=== PATIENT | female | born 1965 | race Caucasian/White ===

== ENCOUNTER 2022-01-31 06:00 | Outpatient (RCR) | payer MEDICARE, SELFPAY | END 2022-02-08 23:59 | disposition home or self-care (01) | LOC: SPT 06:00 | PROVIDERS: PCP Family Medicine; Visit Provider Otolaryngology | DX: R42 Dizziness and giddiness (principal); H81.11 Benign paroxysmal vertigo, right ear | CPT/HCPCS: 95992; 97162 ==

== ENCOUNTER 2023-03-11 14:42 | Outpatient (CLI) | payer MEDICARE, SELFPAY ==
--- NOTE | 2023-03-11 14:52 | MM_ITS ---
WS: [id number] BILATERAL 3D TOMOSYNTHESIS DIGITAL DIAGNOSTIC MAMMOGRAPHY WITH CAD CLINICAL INFORMATION: CYST OF LEFT BREAST HISTORY: Bump on skin near nipple COMPARISON: 2016 TECHNIQUE: Bilateral CC, MLO, and ML views. FINDINGS: Scattered fibroglandular densities bilaterally. A few incidental punctate and lucent centered calcifi cations. Palpable marker LEFT breast near the nipple. No definite underlying mammographic abnormaliti es. Ultrasound of this area is pending. RIGHT breast is unremarkable. ULTRASOUND BREAST LEFT TECHNIQUE: Ultrasound left breast focused area of concern. CLINICAL INFORMATION: CYST OF LEFT BREAST FINDINGS: Ultrasound LEFT breast area of concern LEFT nipple. Hypoechoic superficial ovoid lesion 3 o'clock pos ition LEFT breast at the areola measuring 6.4 x 5.8 x 4.1 mm. This demonstrates through transmission. Findings suspicious for complex cyst with internal debris. Recommend 6-month follow-up LEFT breast diagnostic mammography and ultrasound to ensure stability or resolution. Alternatively this could be surgically excised if increasing in size or additional clinic al or patient concern. Ultrasound-guided biopsy not recommended due to risk of rupture and subsequent infection in this area IMPRESSION: MM/[place] [id number] BI-RADS: 3-Probably Benign FOLLOW UP: 6 Month Follow-up
== END 2023-03-11 14:43 | disposition home or self-care (01) ==
LOC: RAD 14:42
PROVIDERS: PCP Family Medicine; Visit Provider Family Medicine
DX: N60.02 Solitary cyst of left breast (principal)
CPT/HCPCS: 76642; 77062; G0279

== ENCOUNTER 2023-09-12 12:51 | Outpatient (CLI) | payer MEDICARE, SELFPAY ==
--- NOTE | 2023-09-12 13:19 | MM_ITS ---
WS: [id number] LEFT 3D TOMOSYNTHESIS DIGITAL MAMMOGRAPHY WITH CAD CLINICAL INFORMATION: CYST LT BR. 6 MO FU HISTORY: 6-month follow-up COMPARISON: 03/11/2023 TECHNIQUE: 3 views of the left breast were obtained. FINDINGS: Scattered fibroglandular densities of the left breast. A few incidental punctate and lucent centered calcifications. Ultrasound of the LEFT nipple is pending. No new suspicious parenchymal abnormalities . ULTRASOUND BREAST LEFT TECHNIQUE: Ultrasound left breast focused area of concern. CLINICAL INFORMATION: CYST LT BR. 6 MO FU FINDINGS: Ultrasound LEFT breast 3:00 areola. Interval decrease in size of the previously described subcutan eous small cystic lesion today measuring only 2 x 2 x 1 mm. This has a benign appearance. Recommend r eturn to annual screen mammography. MM/[place] [id number] IMPRESSION: BI-RADS: 2-Benign FOLLOW UP: 1 Year Follow-up Recommend return to annual screening mammography.
== END 2023-09-12 12:52 | disposition home or self-care (01) ==
LOC: RAD 12:51
PROVIDERS: PCP Family Medicine; Visit Provider Family Medicine
DX: N60.02 Solitary cyst of left breast (principal); R92.323 Mammographic fibroglandular density, bilateral breasts; R92.1 Mammographic calcification found on diagnostic imaging of breast
CPT/HCPCS: 76642; 77061; G0279